=== PATIENT | female | born 1985 | race Caucasian/White ===

== ENCOUNTER 2022-05-09 15:07 | Emergency (ER) | payer BC, SELFPAY ==
--- NOTE | ~2022-05-09 | XR_ITS ---
EXAMINATION: XR CHEST CLINICAL INFORMATION: Chest pain. COMPARISON: None available. TECHNIQUE: Frontal view of the chest was obtained. FINDINGS: No significant abnormality is noted involving the heart, lungs, mediastinum, bony thorax or soft tissues. XR/XR chest 1V IMPRESSION: No acute cardiopulmonary process.
--- NOTE | 2022-05-09 15:09 | ECG_ITS ---
Test Reason : CP Blood Pressure : / mmHG Vent. Rate : 077 BPM Atrial Rate : 077 BPM P-R Int : 156 ms QRS Dur : 084 ms QT Int : 378 ms P-R-T Axes : 058 029 015 degrees QTc Int : 427 ms Normal sinus rhythm with sinus arrhythmia Normal ECG No previous ECGs available Referred By: Simeon Perez Electronically Signed By:LINN GIORDANO MD
--- NOTE | 2022-05-09 15:10 | ED.CHESTPAIN ---
HPI - Chest Pain General Chief Complaint: Chest Pain <CANDY Nugent - Last Filed: 05/09/22 15:16> Stated Complaint: chest pain <CANDY Nugent - Last Filed: 05/09/22 15:16> Time Seen by Provider: 05/09/22 18:32 <CANDY Nugent - Last Filed: 05/09/22 15:16> Source: patient <Jose Juan Pierce MD - Last Filed: 05/09/22 19:19> Mode of arrival: ambulatory <Jose Juan Pierce MD - Last Filed: 05/09/22 19:19> Limitations: no limitations <Jose Juan Pierce MD - Last Filed: 05/09/22 19:19> History of Present Illness HPI narrative: Patient nonsmoker with no coronary risk factor 36 years old with increased anxiety comes here for left-sided chest pain and upper back pain for last 1 month pain increases on palpation no shortness of breath no palpitation or diaphoresis pain is sharp in character <Jose Juan Pierce MD - Last Filed: 05/09/22 19:19> Related Data Home Medications: Previous Rx's Medication Instructions Recorded cyclobenzaprine 10 mg tablet 10 mg PO Q8H #20 tabs 05/09/22 ibuprofen 600 mg tablet 600 mg PO Q6H PRN fever or pain 05/09/22 #30 tabs <CANDY Nugent - Last Filed: 05/09/22 15:16> Allergies/Adverse Reactions: Allergies Allergy/AdvReac Type Severity Reaction Status Date / Time Unable to Assess Allergy Unverified 05/09/22 15:09 <CANDY Nugent - Last Filed: 05/09/22 15:16> Review of Systems Review of Systems: Constitutional : No Weight loss, No Fever, No Chills ENT/Mouth : No sore throat, No Rhinorrhea Eyes: No Eye Pain, No Swelling Cardiovascular : ++ Chest Pain, no palpitations Respiratory : No Cough, No Sputum, no shortness of breath Gastrointestinal : no Nausea, No Vomiting, No Diarrhea, No abdominal Pain, no black stools Genitourinary : No Dysuria, No Urinary Frequency Musculoskeletal : No joint pain, No Myalgias, No Joint Swelling Skin : No Skin Lesions, No rash Neuro : No Weakness, No Numbness, No Dizziness, No Headache Psych : No Anxiety/Panic, No Depression Heme/Lymph: No Bruising, No Lymphadenopathy Endocrine : No Polyuria, No Polydipsia All other systems reviewed and are negative <Jose Juan Pierce MD - Last Filed: 05/09/22 19:19> Yes all other systems are reviewed and are negative <Jose Juan Pierce MD - Last Filed: 05/09/22 19:19> [facility] Social History Social History: Social History Alcohol intake: current Alcohol intake frequency: a few times a month Alcohol type: wine Smoked in Last 30 Days: No Use of substances other than those prescribed or required for medical reasons: Yes Substance Use Type: Marijuana Substance Use Frequency: Chronic Longstanding Last Used Substance: Hours (ago) Any prior treatment program specific to substance use: No Advance Directives: No Advance Directives Information Provided: No Patient : No <CANDY Nugent - Last Filed: 05/09/22 15:16> Physical Exam Vital Signs: Vital Signs: Last Vital Signs Temp 98.0 F 05/09/22 18:34 Pulse 63 05/09/22 18:34 Resp 18 05/09/22 18:34 BP 125/69 05/09/22 18:34 Pulse Ox 99 05/09/22 18:34 O2 Del Method 05/09/22 18:34 BMI result Body Mass Index 41.5 <CANDY Nugent - Last Filed: 05/09/22 15:16> Vital Signs: Last Vital Signs Temp 98.0 F 05/09/22 18:34 Pulse 63 05/09/22 18:34 Resp 18 05/09/22 18:34 BP 125/69 05/09/22 18:34 Pulse Ox 99 05/09/22 18:34 O2 Del Method 05/09/22 18:34 BMI result Body Mass Index 41.5 <Jose Juan Pierce MD - Last Filed: 05/09/22 19:19> Appearance: Alert. Oriented X3. No acute distress. Eyes: PERRLA, No Nystagmus ENT: Pharynx normal. Oral Mucosa moist Neck: Normal inspection. Neck supple. CVS: Normal heart rate and rhythm. Pulses normal. Respiratory: No respiratory distress. Equal air entry bilateral, no wheezing/rales/rhonchi Abdomen: Soft and nontender. Bowel sounds are present, Skin: Skin warm and dry. Normal skin color. Normal skin turgor. upper back : Tenderness bilateral trepezoid area with trigger points tenderness Extremities: No lower extremity edema. No calf tenderness Neuro: Oriented X 3. No motor deficit. <Jose Juan Pierce MD - Last Filed: 05/09/22 19:19> Course Course Course Narrative: This is an RME: Additional HPI, ROS, PE not included below will be deferred to primary provider. 36 year old female presents w/ L sided stabbing chest pain w/ radition down L arm that started a month has been intermittent ever since. Was seen by PCP for this and was refered for stress test on may 31, 2022. Feels anxious. Denies sob, fevers, chills, nausea, vomiting. No cardiac hx. No family cardiac hx. No long travel, smoking, control, hx of malignancy, hx pe/dvt. PE benign however appears anxious Plan- labs, ekg, cxr <CANDY Nugent - Last Filed: 05/09/22 15:16> Medications Administered Discontinued Medications Generic Name Dose Route Start Last Admin Trade Name Freq PRN Reason Stop Dose Admin Cyclobenzaprine HCl 10 mg 05/09/22 19:03 05/09/22 19:12 Cyclobenzaprine Hcl 10 Mg Tablet PO 05/09/22 19:04 10 mg ONCE ONE Administration Ibuprofen 600 mg 05/09/22 19:03 05/09/22 19:12 Ibuprofen 600 Mg Tablet PO 05/09/22 19:04 600 mg ONCE ONE Administration <CANDY Nugent - Last Filed: 05/09/22 15:16> Medications Administered Discontinued Medications Generic Name Dose Route Start Last Admin Trade Name Freq PRN Reason Stop Dose Admin Cyclobenzaprine HCl 10 mg 05/09/22 19:03 05/09/22 19:12 Cyclobenzaprine Hcl 10 Mg Tablet PO 05/09/22 19:04 10 mg ONCE ONE Administration Ibuprofen 600 mg 05/09/22 19:03 05/09/22 19:12 Ibuprofen 600 Mg Tablet PO 05/09/22 19:04 600 mg ONCE ONE Administration <Jose Juan Pierce MD - Last Filed: 05/09/22 19:19> Medical Decision Making Medical Decision Making [facility] Narrative: Patient with increased anxiety atypical chest pain normal EKG normal troponin heart score of 0 likely fibromyalgia/costochondritis discharge patient home on ibuprofen and Flexeril <Jose Juan Pierce MD - Last Filed: 05/09/22 19:19> Lab Data [facility] Lab Attestation statement: I reviewed the patient's lab results. <Jose Juan Pierce MD - Last Filed: 05/09/22 19:19> Result Diagrams: 05/09/22 16:13 05/09/22 16:13 <CANDY Nugent - Last Filed: 05/09/22 15:16> Labs: Lab Results 05/09/22 05/09/22 05/09/22 Range/Units 16:13 16:13 16:13 WBC 11.6 H (4.8-10.8) X10*3/uL RBC 4.47 (4.20-5.50) X10*6/uL Hgb 13.1 (12.0-16.0) g/dl Hct 39.3 (37.0-47.0) % MCV 87.9 (80.0-98.0) fL MCH 29.3 (27.0-33.0) pg MCHC 33.3 (31.0-35.0) g/dl RDW 12.3 (11.0-16.0) % Plt Count 275 (160-400) X10*3/uL MPV 11.5 (9.4-12.3) fL Immature Gran % (Auto) 0.3 (0.0-0.4) % Neut % (Auto) 74.1 H (45-73) % Lymph % (Auto) 19.6 L (20-40) % Brooke % (Auto) 4.7 (2-11) % Eos % (Auto) 0.9 (0-4) % Baso % (Auto) 0.4 (0-2) % Lymph # (Auto) 2.3 (1.2-4.9) X10*3/uL Brooke # (Auto) 0.5 (0.1-1.2) X10*3/uL Eos # (Auto) 0.1 (0.0-0.4) X10*3/uL Baso # (Auto) 0.1 (0.0-0.2) X10*3/uL Abs Immat Gran (auto) 0.03 (0.00-0.03) X10*3/uL Absolute Neuts (auto) 8.6 H (2.0-8.3) x10*3/uL Absolute Nucleated RBC 0.000 (0.0-0.012) X10*3/uL Nucleated RBC % (auto) 0.0 (0.0-0.2) /100WBC Sodium 139 (135-145) mmol/L Potassium 4.3 (3.3-5.1) mmol/L Chloride 105 (96-108) mmol/L Carbon Dioxide 27 (22-29) mmol/L Anion Gap 11 L (12-20) BUN 21 H (9-16) mg/dL Creatinine 0.84 (0.5-1.4) mg/dL Estim Creat Clear Calc 118.5 Estimated GFR > 60 Random Glucose 90 (60-115) mg/dL Calcium 9.3 (8.4-10.2) mg/dL Magnesium 2.1 (1.6-2.6) mg/dL Total Bilirubin 0.5 (0.0-1.0) mg/dL AST 16 (5-31) U/L ALT 15 (0-31) U/L Alkaline Phosphatase 62 (39-117) U/L Troponin I High Sens < 3.5 (<3.5-17.0) ng/L B-Natriuretic Peptide (<100) pg/mL Total Protein 6.8 (6.5-8.0) g/dL Albumin 4.3 (3.5-5.0) g/dL 05/09/22 Range/Units 16:13 WBC (4.8-10.8) X10*3/uL RBC (4.20-5.50) X10*6/uL Hgb (12.0-16.0) g/dl Hct (37.0-47.0) % MCV (80.0-98.0) fL MCH (27.0-33.0) pg MCHC (31.0-35.0) g/dl RDW (11.0-16.0) % Plt Count (160-400) X10*3/uL MPV (9.4-12.3) fL Immature Gran % (Auto) (0.0-0.4) % Neut % (Auto) (45-73) % Lymph % (Auto) (20-40) % Brooke % (Auto) (2-11) % Eos % (Auto) (0-4) % Baso % (Auto) (0-2) % Lymph # (Auto) (1.2-4.9) X10*3/uL Brooke # (Auto) (0.1-1.2) X10*3/uL Eos # (Auto) (0.0-0.4) X10*3/uL Baso # (Auto) (0.0-0.2) X10*3/uL Abs Immat Gran (auto) (0.00-0.03) X10*3/uL Absolute Neuts (auto) (2.0-8.3) x10*3/uL Absolute Nucleated RBC (0.0-0.012) X10*3/uL Nucleated RBC % (auto) (0.0-0.2) /100WBC Sodium (135-145) mmol/L Potassium (3.3-5.1) mmol/L Chloride (96-108) mmol/L Carbon Dioxide (22-29) mmol/L Anion Gap (12-20) BUN (9-16) mg/dL Creatinine (0.5-1.4) mg/dL Estim Creat Clear Calc Estimated GFR Random Glucose (60-115) mg/dL Calcium (8.4-10.2) mg/dL Magnesium (1.6-2.6) mg/dL Total Bilirubin (0.0-1.0) mg/dL AST (5-31) U/L ALT (0-31) U/L Alkaline Phosphatase (39-117) U/L Troponin I High Sens (<3.5-17.0) ng/L B-Natriuretic Peptide < 10 (<100) pg/mL Total Protein (6.5-8.0) g/dL Albumin (3.5-5.0) g/dL <CANDY Nugent - Last Filed: 05/09/22 15:16> Lab Results 05/09/22 05/09/22 05/09/22 Range/Units 16:13 16:13 16:13 WBC 11.6 H (4.8-10.8) X10*3/uL RBC 4.47 (4.20-5.50) X10*6/uL Hgb 13.1 (12.0-16.0) g/dl Hct 39.3 (37.0-47.0) % MCV 87.9 (80.0-98.0) fL MCH 29.3 (27.0-33.0) pg MCHC 33.3 (31.0-35.0) g/dl RDW 12.3 (11.0-16.0) % Plt Count 275 (160-400) X10*3/uL MPV 11.5 (9.4-12.3) fL Immature Gran % (Auto) 0.3 (0.0-0.4) % Neut % (Auto) 74.1 H (45-73) % Lymph % (Auto) 19.6 L (20-40) % Brooke % (Auto) 4.7 (2-11) % Eos % (Auto) 0.9 (0-4) % Baso % (Auto) 0.4 (0-2) % Lymph # (Auto) 2.3 (1.2-4.9) X10*3/uL Brooke # (Auto) 0.5 (0.1-1.2) X10*3/uL Eos # (Auto) 0.1 (0.0-0.4) X10*3/uL Baso # (Auto) 0.1 (0.0-0.2) X10*3/uL Abs Immat Gran (auto) 0.03 (0.00-0.03) X10*3/uL Absolute Neuts (auto) 8.6 H (2.0-8.3) x10*3/uL Absolute Nucleated RBC 0.000 (0.0-0.012) X10*3/uL Nucleated RBC % (auto) 0.0 (0.0-0.2) /100WBC Sodium 139 (135-145) mmol/L Potassium 4.3 (3.3-5.1) mmol/L Chloride 105 (96-108) mmol/L Carbon Dioxide 27 (22-29) mmol/L Anion Gap 11 L (12-20) BUN 21 H (9-16) mg/dL Creatinine 0.84 (0.5-1.4) mg/dL Estim Creat Clear Calc 118.5 Estimated GFR > 60 Random Glucose 90 (60-115) mg/dL Calcium 9.3 (8.4-10.2) mg/dL Magnesium 2.1 (1.6-2.6) mg/dL Total Bilirubin 0.5 (0.0-1.0) mg/dL AST 16 (5-31) U/L ALT 15 (0-31) U/L Alkaline Phosphatase 62 (39-117) U/L Troponin I High Sens < 3.5 (<3.5-17.0) ng/L B-Natriuretic Peptide (<100) pg/mL Total Protein 6.8 (6.5-8.0) g/dL Albumin 4.3 (3.5-5.0) g/dL 05/09/22 Range/Units 16:13 WBC (4.8-10.8) X10*3/uL RBC (4.20-5.50) X10*6/uL Hgb (12.0-16.0) g/dl Hct (37.0-47.0) % MCV (80.0-98.0) fL MCH (27.0-33.0) pg MCHC (31.0-35.0) g/dl RDW (11.0-16.0) % Plt Count (160-400) X10*3/uL MPV (9.4-12.3) fL Immature Gran % (Auto) (0.0-0.4) % Neut % (Auto) (45-73) % Lymph % (Auto) (20-40) % Brooke % (Auto) (2-11) % Eos % (Auto) (0-4) % Baso % (Auto) (0-2) % Lymph # (Auto) (1.2-4.9) X10*3/uL Brooke # (Auto) (0.1-1.2) X10*3/uL Eos # (Auto) (0.0-0.4) X10*3/uL Baso # (Auto) (0.0-0.2) X10*3/uL Abs Immat Gran (auto) (0.00-0.03) X10*3/uL Absolute Neuts (auto) (2.0-8.3) x10*3/uL Absolute Nucleated RBC (0.0-0.012) X10*3/uL Nucleated RBC % (auto) (0.0-0.2) /100WBC Sodium (135-145) mmol/L Potassium (3.3-5.1) mmol/L Chloride (96-108) mmol/L Carbon Dioxide (22-29) mmol/L Anion Gap (12-20) BUN (9-16) mg/dL Creatinine (0.5-1.4) mg/dL Estim Creat Clear Calc Estimated GFR Random Glucose (60-115) mg/dL Calcium (8.4-10.2) mg/dL Magnesium (1.6-2.6) mg/dL Total Bilirubin (0.0-1.0) mg/dL AST (5-31) U/L ALT (0-31) U/L Alkaline Phosphatase (39-117) U/L Troponin I High Sens (<3.5-17.0) ng/L B-Natriuretic Peptide < 10 (<100) pg/mL Total Protein (6.5-8.0) g/dL Albumin (3.5-5.0) g/dL <Jose Juan Pierce MD - Last Filed: 05/09/22 19:19> Independent Interpretation I performed an independent interpretation of an: EKG <Jose Juan Pierce MD - Last Filed: 05/09/22 19:19> Interpretation: Normal sinus rhythm heart rate 77 beats per minute normal interval normal axis no acute ST wave changes impression normal EKG <Jose Juan Pierce MD - Last Filed: 05/09/22 19:19> Discharge Plan Discharge Clinical Impression: Costalchondritis, Fibromyalgia <CANDY Nugent - Last Filed: 05/09/22 15:16> Patient Disposition: Home, Self-Care <CANDY Nugent - Last Filed: 05/09/22 15:16> Instructions: Costochondritis (ED), Fibromyalgia (ED) <CANDY Nugent - Last Filed: 05/09/22 15:16> Additional Instructions: Take pain medication muscle relaxant as prescribed Your chest pain and upper back pain is not from the heart likely have fibromyalgia Follow with PCP <CANDY Nugent - Last Filed: 05/09/22 15:16> Prescriptions: New cyclobenzaprine 10 mg tablet 10 mg PO Q8H Qty: 20 0RF ibuprofen 600 mg tablet 600 mg PO Q6H PRN (Reason: fever or pain) Qty: 30 0RF <CANDY Nugent - Last Filed: 05/09/22 15:16> Interventions: ED Discharge Assessment Last Done: 05/09/22 19:16 <CANDY Nugent - Last Filed: 05/09/22 15:16>
[2022-05-09 15:31] VITALS: BP 135/87; PULSE 86; RESP 20; TEMP 36.5; O2SAT 98; BMI 41.5
[2022-05-09 16:18] LABS: MANUAL DIFF FLAG NO
[2022-05-09 16:20] LABS: Basophils Absolute Auto 0.1 X10*3/uL (0.0-0.2); Basophils Percent Auto 0.4 % (0-2); Eosinophils Absolute Auto 0.1 X10*3/uL (0.0-0.4); Eosinophils Percent Auto 0.9 % (0-4); Hematocrit 39.3 % (37.0-47.0); Hemoglobin 13.1 g/dl (12.0-16.0); Imm Gran Abs Auto 0.03 X10*3/uL (0.00-0.03); Imm Gran Pct Auto 0.3 % (0.0-0.4); Lymphocytes Absolute Auto 2.3 X10*3/uL (1.2-4.9); Lymphocytes Percent Auto 19.6 % (20-40); Mean Corpuscular HGB Conc 33.3 g/dl (31.0-35.0); Mean Corpuscular Hemoglobin 29.3 pg (27.0-33.0); Mean Corpuscular Volume 87.9 fL (80.0-98.0); Mean Platelet Volume 11.5 fL (9.4-12.3); Monocytes Absolute Auto 0.5 X10*3/uL (0.1-1.2); Monocytes Percent Auto 4.7 % (2-11); Neutrophils Absolute Auto 8.6 x10*3/uL (2.0-8.3); Neutrophils Percent Auto 74.1 % (45-73); Platelet Count 275 X10*3/uL (160-400); Red Blood Count 4.47 X10*6/uL (4.20-5.50); Red Cell Distribution Width 12.3 % (11.0-16.0); White Blood Count 11.6 X10*3/uL (4.8-10.8)
[2022-05-09 16:40] LABS: Alanine Aminotransferase 15 U/L (0-31); Albumin Level 4.3 g/dL (3.5-5.0); Alkaline Phosphatase 62 U/L (39-117); Anion Gap 11 (12-20); Aspartate Amino Transferase 16 U/L (5-31); Bilirubin Total 0.5 mg/dL (0.0-1.0); Blood Urea Nitrogen 21 mg/dL (9-16); Calcium 9.3 mg/dL (8.4-10.2); Carbon Dioxide 27 mmol/L (22-29); Chloride 105 mmol/L (96-108); Creatinine Clr Calc Pharmacy 118.5; Estimated Glomerular Filt Rate > 60; Glucose Random 90 mg/dL (60-115); Magnesium 2.1 mg/dL (1.6-2.6); Potassium 4.3 mmol/L (3.3-5.1); Sodium 139 mmol/L (135-145); Total Protein 6.8 g/dL (6.5-8.0)
[2022-05-09 16:44] LABS: B Type Natriuretic Peptide < 10 pg/mL (<100)
[2022-05-09 16:51] LABS: Troponin-I High Sensitivity < 3.5 ng/L (<3.5-17.0)
[2022-05-09 18:34] VITALS: BP 125/69; PULSE 63; RESP 18; TEMP 36.7; O2SAT 99
[2022-05-09] MEDS: Cyclobenzaprine HCl 10 MG TABLET PO (19:12)
[2022-05-09] MEDS: Ibuprofen 600 MG TABLET PO (19:12)
--- NOTE | 2022-05-09 19:15 | PC.NURSE ---
Assumed care of pt. at 1900. Pt. resting in bed at this time reporting 5/10 pain. Pt. pending d/c. medicated per APR and d/c'd to home.
== END 2022-05-09 19:17 | disposition home or self-care (01) ==
PROVIDERS: Physician Assistant; Emergency Provider Internal Medicine
DX: R07.9 Chest pain, unspecified (principal); M94.0 Chondrocostal junction syndrome [Tietze]; M79.7 Fibromyalgia
CPT/HCPCS: 36415; 71045; 80053; 83735; 83880; 84484; 85025; 93005; 99283; 99284; 99285

== ENCOUNTER 2022-12-23 19:18 | Emergency (ER) | payer BC, SELFPAY ==
--- NOTE | ~2022-12-23 | XR_ITS ---
EXAMINATION: PORTABLE CHEST 1 VIEW CLINICAL INFORMATION: Cough, difficulty breathing. COMPARISON: 05/09/2022. TECHNIQUE: Portable frontal view of the chest was obtained. FINDINGS: The lungs are well expanded. No focal infiltrate, effusion, edema, or pneumothorax. Cardiac and mediastinal silhouettes are within normal limits for technique. No acute bony abnormality seen. XR/XR chest 1V IMPRESSION: No evidence of acute disease.
[2022-12-23 19:29] VITALS: BP 129/79; PULSE 91; RESP 21; TEMP 36.7; O2SAT 98; BMI 41.6
[2022-12-23 20:19] LABS: Hemoglobin 12.7 g/dl (12.0-16.0); Mean Corpuscular HGB Conc 32.6 g/dl (31.0-35.0); Mean Corpuscular Hemoglobin 29.7 pg (27.0-33.0); Mean Corpuscular Volume 91.1 fL (80.0-98.0); Mean Platelet Volume 11.5 fL (9.4-12.3); Platelet Count 243 X10*3/uL (160-400); Red Blood Count 4.28 X10*6/uL (4.20-5.50); Red Cell Distribution Width 12.4 % (11.0-16.0); White Blood Count 10.4 X10*3/uL (4.8-10.8)
[2022-12-23 20:41] LABS: IDNOW Serial# 08D9AD1C; Strep A Nucleic Acid Negative (Negative)
[2022-12-23 20:51] LABS: Alanine Aminotransferase 17 U/L (0-31); Albumin Level 3.9 g/dL (3.5-5.0); Alkaline Phosphatase 56 U/L (39-117); Anion Gap 11 (12-20); Aspartate Amino Transferase 16 U/L (5-31); Bilirubin Total 0.2 mg/dL (0.0-1.0); Blood Urea Nitrogen 16 mg/dL (9-16); Calcium 8.7 mg/dL (8.4-10.2); Carbon Dioxide 23 mmol/L (22-29); Chloride 111 mmol/L (96-108); Creatinine Clr Calc Pharmacy 110.8; Estimated Glomerular Filt Rate > 60; Glucose Random 93 mg/dL (60-115); Potassium 3.7 mmol/L (3.3-5.1); Sodium 141 mmol/L (135-145); Total Protein 6.8 g/dL (6.5-8.0)
[2022-12-23 20:55] LABS: Influenza A PCR NEGATIVE (Negative); Influenza B PCR NEGATIVE (Negative); Resp Syncy Virus RNA Qual PCR NEGATIVE (Negative); SARS COV2 PCR INHOUSE NEGATIVE (Negative)
--- NOTE | 2022-12-23 21:40 | ED_ITS ---
HPI - General Adult General Chief complaint: Upper Respiratory Symptoms Stated complaint: difficulty breathing, congested, cough Time Seen by Provider: 12/23/22 21:39 Source: patient Mode of arrival: ambulatory Limitations: no limitations History of Present Illness HPI narrative: Patient is a 37 year old assigned female at with a history of asthma presenting to the emergency department today with a sore throat and cough. Patient states that earlier today she developed a sore throat and a cough. Patient denies any dizziness, lightheadedness, abdominal pain, nausea, vomiting, fever, chills, blurry vision, double vision, loss of vision, chest pain, difficulty breathing, shortness of breath, back pain, night sweats, pain with urination, increased urinary frequency, increased urinary urgency, blood in her urine or stool, syncope or a near syncopal episode, recent trauma or falls, bowel incontinence, bladder incontinence, bowel retention, bladder retention, or any other complaints at this time. Onset (ago): hour(s) Severity: mild Severity scale (1-10): 2 Relieving factors: none Exacerbating factors: none Associated symptoms: cough Treatments prior to arrival: none Related Data Previous Rx's Medication Instructions Recorded cyclobenzaprine 10 mg tablet 10 mg PO Q8H #20 tabs 05/09/22 ibuprofen 600 mg tablet 600 mg PO Q6H PRN fever or pain 05/09/22 #30 tabs doxycycline hyclate 100 mg tablet 100 mg PO BID 7 days #14 tabs 12/23/22 prednisone 20 mg tablet 20 mg PO DAILY 7 days #7 tabs 12/23/22 Allergies Allergy/AdvReac Type Severity Reaction Status Date / Time No Known Allergies Allergy Verified 12/23/22 19:29 Review of Systems 2 Constitutional: Constitutional: Reports no additional constitutional complaints, Denies chills, Denies fever(s) and Denies night sweats Eyes: Eyes: Reports no additional eye complaints, Denies blurry vision, Denies change in vision, Denies diplopia, Denies eye discharge, Denies loss of vision and Denies eye pain ENT: Denies dizziness and Reports sore throat Cardiovascular: Cardiovascular: Reports no additional cardiovascular complaints, Denies chest pain, Denies lightheadedness, Denies Loss of Consciousness and Denies dyspnea Respiratory: Respiratory: Reports no additional respiratory complaints, Reports cough and Denies dyspnea Gastrointestinal: Gastrointestinal: Reports no additional gastrointestinal complaints, Denies abdominal pain, Denies melena, Denies hematochezia, Denies change in bowel habits and Denies change in stool character Genitourinary: Genitourinary: Denies hematuria, Denies urinary frequency, Denies dysuria, Denies urinary incontinence, Denies urinary hesitancy and Denies urinary urgency Musculoskeletal: Musculoskeletal: Reports no additional musculoskeletal complaints, Denies numbness and Denies tingling Neurologic: Denies dizziness, Denies loss of vision, Denies numbness and Denies tingling Psychiatric: Psychiatric: Reports no additional psychiatric complaints Endocrine: Endocrine: Reports no additional endocrine complaints Hematologic/Lymphatic: Hematologic/Lymphatic: Reports no additional hematologic/lymphatic complaints Allergic/Immunologic: Allergic/Immunologic: Reports no additional allergic/immunologic complaints PMFSH Past Medical History Attestation statement: The following information was validated with the patient. Source: old records reviewed and nursing notes reviewed Social History Social History Alcohol intake: current Alcohol intake frequency: a few times a month Alcohol type: wine Smoked in Last 30 Days: No Use of substances other than those prescribed or required for medical reasons: No Substance Use Type: Marijuana Advance Directives: No Patient : No Physical Exam ED Vital Signs: Vital Signs - 24 hr 12/23/22 19:29 12/23/22 21:51 Temperature 98.0 F Pulse Rate 91 Respiratory Rate 21 H Blood Pressure 129/79 Pulse Oximetry 98 98 Oxygen Delivery Method Room Air Room Air BMI result Body Mass Index 41.6 Const General: cooperative, no acute distress, alert and awake Nutritional Appearance: well nourished Orientation/consciousness: patient oriented x3 Limitations: no limitations [facility]: Yes normal to inspection and Yes atraumatic Ears: hearing grossly normal bilaterally and external ears normal General nose exam: Normal external nose present, no nasal discharge noted and no epistaxis Face and sinus: Yes normal facial exam, No abrasion and No laceration Mouth: Normal oral and palatal mucosa present, no drooling and no muffled voice Eyes General: appearance normal, both eyes and all related structures Periorbital: periorbital findings normal Eyelids: Yes eyelids normal Conjunctivae: conjunctivae normal Pupils: Equal, round and reactive pupils present EOM: EOMs intact bilaterally Neck Neck: Yes normal visual inspection, Yes full ROM and Yes no lymphadenopathy Chest Chest palpation & inspection: normal inspection of the chest Resp Effort & Inspection: normal respiratory effort, able to speak in complete sentences and Actively coughing Quality: dry Auscultation: clear to auscultation bilaterally GI Inspection: Yes normal to inspection Neuro General: patient oriented x3 and moves all extremities Cranial nerves: Yes Equal, round and reactive pupils present Cognition (Neuro): normal cognition Motor exam (neuro): 5/5 motor strength present throughout Sensory Exam: Normal double simultaneous stimulation for sensation Coordination: [id number] test normal Extrem General: Yes normal to inspection, Yes full ROM and Yes capillary refill normal Psych Appearance: grossly normal Mental Status: mental status grossly normal Affect: normal affect Attitude: cooperative Thought process: Normal thought process present Thought content: Normal thought content present Insight: Good insight present (Psych) Medications Administered Discontinued Medications Generic Name Dose Route Start Last Admin Trade Name Freq PRN Reason Stop Dose Admin Dexamethasone Sodium Phosphate 10 mg 12/23/22 21:47 12/23/22 21:57 Dexamethasone Sod Phosphate 10 Mg/Ml Vial PO 12/23/22 21:48 10 mg ONCE ONE Administration Medical Decision Making Medical Decision Making [facility] Narrative: Patient is a 37 year old assigned female at with a history of asthma presenting to the emergency department today with a cough. Patient's physical exam showed a cough but was otherwise unremarkable. Patient's blood work was unremarkable. Patient's chest x-ray showed no acute process. I explained my physical exam findings as well as all test results to the patient. I answered all questions asked by the patient. I stressed the importance of the patient taking her medication as prescribed. I stressed the importance of the patient following up with her primary care provider. I stressed the importance of the patient returning to the emergency department immediately if her symptoms were to worsen or if she were to develop any dizziness, shortness of breath, difficulty breathing, chest pain, blurry vision, loss of vision, nausea, vomiting, abdominal pain, fever, chills, back pain, or any other complaints. Patient verbalized agreement and understanding with this treatment plan and discharge. Differential Diagnosis Differential Diagnoses: The differential diagnosis associated with the presentation includes URI COVID-19 Admission/Observation Consideration of admission/observation: Escalation of care including admission/observation considered Patient would have been admitted to the hospital had her work up had any findings where hospital admission was appropriate and her clinical presentation warranted hospital admission. Lab Data MDM Lab Attestation statement: I reviewed the patient's lab results. My interpretation of these studies and their corresponding values is that they are grossly normal. 12/23/22 20:10 12/23/22 20:10 Labs: Lab Results 12/23/22 Range/Units 20:10 WBC 10.4 (4.8-10.8) X10*3/uL RBC 4.28 (4.20-5.50) X10*6/uL Hgb 12.7 (12.0-16.0) g/dl Hct 39.0 (37.0-47.0) % MCV 91.1 (80.0-98.0) fL MCH 29.7 (27.0-33.0) pg MCHC 32.6 (31.0-35.0) g/dl RDW 12.4 (11.0-16.0) % Plt Count 243 (160-400) X10*3/uL MPV 11.5 (9.4-12.3) fL Absolute Nucleated RBC 0.000 (0.0-0.012) X10*3/uL Nucleated RBC % (auto) 0.0 (0.0-0.2) /100WBC Sodium 141 (135-145) mmol/L Potassium 3.7 (3.3-5.1) mmol/L Chloride 111 H (96-108) mmol/L Carbon Dioxide 23 (22-29) mmol/L Anion Gap 11 L (12-20) BUN 16 (9-16) mg/dL Creatinine 0.89 (0.5-1.4) mg/dL Estim Creat Clear Calc 110.8 Estimated GFR > 60 Random Glucose 93 (60-115) mg/dL Calcium 8.7 D (8.4-10.2) mg/dL Total Bilirubin 0.2 (0.0-1.0) mg/dL AST 16 (5-31) U/L ALT 17 (0-31) U/L Alkaline Phosphatase 56 (39-117) U/L Total Protein 6.8 (6.5-8.0) g/dL Albumin 3.9 (3.5-5.0) g/dL Influenza Type A (PCR) NEGATIVE (Negative) Influenza Type B (PCR) NEGATIVE (Negative) RSV RNA Qual (PCR) NEGATIVE (Negative) SARS-CoV-2 RNA (RT-PCR) NEGATIVE (Negative) S. pyogenes GrpA HERMELINDA Negative (Negative) Independent Interpretation I performed an independent interpretation of an: Plain X-Ray Interpretation: My interpretation is in agreement with the radiologist's impression of this imaging study. - EXAMINATION: PORTABLE CHEST 1 VIEW CLINICAL INFORMATION: Cough, difficulty breathing. COMPARISON: 05/09/2022. TECHNIQUE: Portable frontal view of the chest was obtained. FINDINGS: The lungs are well expanded. No focal infiltrate, effusion, edema, or pneumothorax. Cardiac and mediastinal silhouettes are within normal limits for technique. No acute bony abnormality seen. XR/XR chest 1V IMPRESSION: No evidence of acute disease. Dictated By: Max Cote MD Signed By: Electronically signed by Max Cote MD 12/23/221999 Radiology Impression Discussion of test interpretation with radiology: I have reviewed the radiologist's reading. Prescription Management I considered prescription management with: Antibiotic (patient prescribed an antibiotic for acute URI) Discharge Plan Discharge Clinical Impression: Upper respiratory infection Patient Disposition: Home, Self-Care Instructions: Upper Respiratory Infection (DC) Additional Instructions: Follow up with your primary care provider. Return to the emergency department immediately if your symptoms worsen or if you develop any dizziness, shortness of breath, difficulty breathing, chest pain, blurry vision, loss of vision, nausea, vomiting, abdominal pain, fever, chills, back pain, or any other complaints. Prescriptions: New prednisone 20 mg tablet 20 mg PO DAILY 7 Days Qty: 7 0RF doxycycline hyclate 100 mg tablet 100 mg PO BID 7 Days Qty: 14 0RF No Action cyclobenzaprine 10 mg tablet 10 mg PO Q8H Qty: 20 0RF ibuprofen 600 mg tablet 600 mg PO Q6H PRN (Reason: fever or pain) Qty: 30 0RF Referrals: [facility] [place] [facility] [place]] (Call to establish and follow up with a primary care provider. If you already have a primary care provider, please follow up with them.) [facility] [place] [facility] [place] [Provider Group] (Call to establish and follow up with a primary care provider. If you already have a primary care provider, please follow up with them.) [facility] [place] [facility] [Provider Group] (Call to establish and follow up with a primary care provider. If you already have a primary care provider, please follow up with them.) Stand Alone Forms: Work/School Release Interventions: ED Discharge Assessment Last Done: 12/23/22 22:04 Discharge Date/Time: 12/23/22 22:04 Print Language: [place]
[2022-12-23 21:51] VITALS: O2SAT 98
--- NOTE | 2022-12-23 21:51 | PC.NURSE ---
Pt reporing a productive cough that started hours ago, with a sore throat with 3/10 pain, and SOB. Pt reports having asthma and used her inhaler with no relief. Pt reports her son has a cough at home. Lung sounds clear bilaterally. Pt aware of plan.
[2022-12-23] MEDS: dexAMETHasone sod phosphate 10 MG/ML VIAL PO (21:57)
== END 2022-12-23 22:04 | disposition home or self-care (01) ==
PROVIDERS: Emergency Provider Emergency Medicine
DX: J06.9 Acute upper respiratory infection, unspecified (principal); R06.02 Shortness of breath; R05.9 Cough, unspecified; Z20.822 Contact with and (suspected) exposure to COVID-19; Z20.828 Contact with and (suspected) exposure to other viral communicable diseases; Z79.899 Other long term (current) drug therapy
CPT/HCPCS: 0241U; 71045; 80053; 85027; 87651; 99283; 99284; J1100

== ENCOUNTER 2023-08-30 10:53 | Outpatient (AMB) | payer BC, SELFPAY ==
--- NOTE | 2023-08-30 10:58 | A.OFFVIS_ITS ---
Vital Signs 08/30/23 11:07 Height 5 ft 5 in Weight 279 lb 1.683 oz BMI 46.4 BP 120/72 Blood Pressure Location Rt brachial Position Sitting Pulse 61 Pulse Source Pulse Oximeter Pulse Oximetry (%) 99 Oxygen Delivery Method Room Air Intake Visit Reasons: Lyme disease/CM Intake Note: Patient presents for Lyme disease. Lots of joint pain and body aches. Allergies No Known Allergies Allergy (Verified 08/30/23 11:02) Medication List - Last Reconciled 08/30/23 by Aden Lundy MD atovaquone 750 mg PO BID azithromycin 250 mg PO DIRECTED cyclobenzaprine 10 mg PO Q8H ibuprofen 600 mg PO Q6H PRN HPI Comments Details: This is a 38-year-old female who presents for evaluation of diffuse pain and body aches. She states that she has had diffuse body aches for years but it has become worse since April of 2022. Was having significant left shoulder pain and pain in her upper left back area, neck area. She was evaluated by physiatry and received a couple of steroid injections without much improvement as well as trigger point injection without much improvement. 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 She is currently on treatment. She started atovaquone about 5 weeks ago and azithromycin was started recently. States that the treatment last 6-8 months. She has not noticed any significant improvement yet. Patient sleeps about 8 hours nightly but does not wake up refreshed. She follows up with a therapist about once a month. She is unaware of any family history of an autoimmune rheumatic disease. Denies any history suggestive of uveitis. Denies any history suggestive of DVT/PE or recurrent miscarriages. PFSH Surgical History H/O knee surgery Family History Father Colon cancer Hypertension Mother Endometriosis Social History (Updated 08/30/23 @ 12:38 by Aden Lundy MD) Household Members: Children Housing: House Alcohol intake: current Alcohol intake frequency: a few times a month Alcohol type: wine Patient Tobacco Use Status: Never used Tobacco Substance Use Type: Marijuana Current occupational status: employed Current occupation: Sales Female Reproductive History Menstrual Total pregnancies: 3 Ab spontaneous: 1 Review of Systems Const Reports fatigue, Reports weakness and Reports weight gain ENT Reports dizziness and Reports neck pain GI Reports nausea Musc Reports myalgias, Reports arthralgias, Reports neck pain and Reports stiffness Neuro Reports dizziness and Reports weakness Endo Reports fatigue Physical Exam Vital Signs: Last Vital Signs Pulse 61 08/30/23 11:07 BP 120/72 08/30/23 11:07 Pulse Ox 99 08/30/23 11:07 Oxygen Delivery Method Room Air 08/30/23 11:07 BMI result Body Mass Index 46.4 Const General: cooperative, healthy appearing and comfortable Nutritional Appearance: obese morbidly obese Orientation/consciousness: patient oriented x3 Limitations: no limitations HEENT Head: Yes normocephalic and Yes atraumatic Mouth: moist mucous membranes Resp Effort & Inspection: normal respiratory effort and able to speak in complete sentences Auscultation: clear to auscultation bilaterally Cardio Rate: regular rate Rhythm: regular rhythm Skin General skin exam: no rashes or lesions noted Neuro General: patient oriented x3 Extrem Other: No active synovitis Normal nailfold capillaroscopy Assessment & Plan Assessment & Plan (1) Diffuse pain: Code(s): R52 - Pain, unspecified Category: Medical Plan: This is a 38-year-old female who presents for evaluation of diffuse pain and fatigue. Symptoms ongoing for more than a year. Upon evaluation I do not see any signs suggestive of an autoimmune rheumatic disease. She was recently evaluated by [facility] and diagnosed with babesiosis, started treatment with atovaquone and azithromycin. Per patient treatment would last 6- 8 months. Advised patient to continue to follow-up with [facility]. Complete the treatment. If No improvement in symptoms after antibiotic course is completed, then likely her diagnosis is fibromyalgia. We briefly discussed fibromyalgia. Advised patient to consider a sleep study referral from her PCP. We discussed low-impact exercises such as aquatherapy. We discussed symptoms and signs suggestive of an autoimmune rheumatic disease. Advised patient to follow-up as needed Plan I spent 30 minutes reviewing patient's chart, evaluating patient, counseling patient and documenting in the chart Medications: Discontinued prednisone Discontinued Reason: Patient no longer taking 20 mg PO DAILY 7 days 7 tabs 0RF doxycycline hyclate Discontinued Reason: Patient no longer taking 100 mg PO BID 7 days 14 tabs 0RF Coding Level of Care Code New Pt Level 3 (54025) Diagnoses Diffuse pain R52
[2023-08-30 11:07] VITALS: BP 120/72; PULSE 61; O2SAT 99; BMI 46.4
== END 2023-08-30 11:39 | disposition home or self-care (01) ==
PROVIDERS: Visit Provider Student in an Organized Health Care Education/Training Program
DX: R52 Pain, unspecified (principal)
CPT/HCPCS: 99203

== ENCOUNTER → 2023-08-30 10:53 | Outpatient (BNVA) | payer BC, SELFPAY | PROVIDERS: Visit Provider Student in an Organized Health Care Education/Training Program ==

== ENCOUNTER 2023-12-31 08:20 | Emergency (ER) | payer BC, SELFPAY ==
--- NOTE | ~2023-12-31 | XR_ITS ---
EXAMINATION: Left foot 3 views and left ankle 4 views. CLINICAL INDICATION: Swelling and pain. COMPARISON: None. FINDINGS: LEFT FOOT: There is normal alignment of metatarsophalangeal, interphalangeal and tarsometatarsal joints. No visible acute fracture or dislocation seen. The soft tissues are normal. LEFT ANKLE: There is a small calcaneal heel spur. The ankle mortise and subtalar joints are normal. No visible acute fracture, dislocation or subluxation seen. The soft tissues are normal. XR/XR foot LT min 3V IMPRESSION: Small calcaneal heel enthesophyte. No visible acute fracture or dislocation seen. Electronically signed by: Eyal Saez MD 12/31/2023 10:54 AM ROSLYN SMITH
--- NOTE | ~2023-12-31 | XR_ITS ---
EXAMINATION: Left foot 3 views and left ankle 4 views. CLINICAL INDICATION: Swelling and pain. COMPARISON: None. FINDINGS: LEFT FOOT: There is normal alignment of metatarsophalangeal, interphalangeal and tarsometatarsal joints. No visible acute fracture or dislocation seen. The soft tissues are normal. LEFT ANKLE: There is a small calcaneal heel spur. The ankle mortise and subtalar joints are normal. No visible acute fracture, dislocation or subluxation seen. The soft tissues are normal. XR/XR ankle LT min 3V IMPRESSION: Small calcaneal heel enthesophyte. No visible acute fracture or dislocation seen. Electronically signed by: Eyal Saez MD 12/31/2023 10:54 AM ROSLY[facility] SMITH
[2023-12-31 08:22] VITALS: BP 118/66; PULSE 80; RESP 16; TEMP 36.3; O2SAT 98; BMI 45.8
[2023-12-31 08:59] VITALS: BP 120/69; PULSE 83; RESP 18; TEMP 36.8; O2SAT 98
[2023-12-31 09:54] LABS: MANUAL DIFF FLAG NO
[2023-12-31 09:57] LABS: Basophils Percent Auto 0.3 % (0-2); Eosinophils Percent Auto 0.1 % (0-4); Hematocrit 37.4 % (37.0-47.0); Hemoglobin 12.6 g/dl (12.0-16.0); Imm Gran Abs Auto 0.06 X10*3/uL (0.00-0.03); Imm Gran Pct Auto 0.5 % (0.0-0.4); Lymphocytes Absolute Auto 1.3 X10*3/uL (1.2-4.9); Mean Corpuscular HGB Conc 33.7 g/dl (31.0-35.0); Mean Corpuscular Hemoglobin 29.7 pg (27.0-33.0); Mean Corpuscular Volume 88.2 fL (80.0-98.0); Mean Platelet Volume 11.7 fL (9.4-12.3); Monocytes Absolute Auto 0.5 X10*3/uL (0.1-1.2); Monocytes Percent Auto 3.7 % (2-11); Neutrophils Absolute Auto 10.9 x10*3/uL (2.0-8.3); Neutrophils Percent Auto 85.4 % (45-73); Platelet Count 186 X10*3/uL (160-400); Red Blood Count 4.24 X10*6/uL (4.20-5.50); Red Cell Distribution Width 12.6 % (11.0-16.0); White Blood Count 12.7 X10*3/uL (4.8-10.8)
[2023-12-31 10:12] LABS: Alanine Aminotransferase 15 U/L (0-31); Albumin Level 3.9 g/dL (3.5-5.0); Alkaline Phosphatase 54 U/L (39-117); Anion Gap 14 (12-20); Aspartate Amino Transferase 17 U/L (5-31); Bilirubin Direct 0.2 mg/dL (0.0-0.5); Bilirubin Total 0.5 mg/dL (0.0-1.0); Blood Urea Nitrogen 16 mg/dL (9-16); C Reactive Protein 10.38 mg/dL (< or = 0.50); Calcium 8.9 mg/dL (8.4-10.2); Carbon Dioxide 23 mmol/L (22-29); Chloride 107 mmol/L (96-108); Creatinine Clr Calc Pharmacy 137.6; Estimated Glomerular Filt Rate > 60; Glucose Random 87 mg/dL (60-115); Magnesium 1.9 mg/dL (1.6-2.6); Potassium 3.7 mmol/L (3.3-5.1); Sodium 140 mmol/L (135-145)
[2023-12-31] MEDS: Acetaminophen 325 MG TABLET 650 MG PO (10:20)
--- NOTE | 2023-12-31 10:26 | ED.GENADULT ---
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 Denies reported injuries, falls. Does admit to doing work out on . Denies history of gout, numbness, tingling, weakness, fever/chills, recent travel, tick or insect bites, new medications. States is currently taking homeopathic remedies for Lyme/Babesosis. Related Data Home Medications ?Medication ?Instructions ?Recorded ?Confirmed atovaquone 750 mg/5 mL oral 750 mg PO BID 08/30/23 suspension azithromycin 250 mg tablet 250 mg PO DIRECTED 08/30/23 Previous Rx's ?Medication ?Instructions ?Recorded cyclobenzaprine 10 mg tablet 10 mg PO Q8H #20 tabs 05/09/22 ibuprofen 600 mg tablet 600 mg PO Q6H PRN fever or pain 05/09/22 #30 tabs prednisone 20 mg tablet 40 mg (2 x 20 mg) PO DAILY 5 days 12/31/23 #10 tabs Allergies Allergy/AdvReac Type Severity Reaction Status Date / Time No Known Allergies Allergy Verified 12/31/23 08:27 Review of Systems Review of Systems: Yes all other systems are reviewed and are negative Constitutional: Constitutional: Reports as per [facility] Past Medical History Attestation statement: The following information was validated with the patient. Source: old records reviewed Surgical History H/O knee surgery Family History Family History Father Colon cancer Hypertension Mother Endometriosis Social History Social History Household Members: Children Housing: House Alcohol intake: current Alcohol intake frequency: holidays/special occasions only Alcohol type: wine Patient Tobacco Use Status: Never used Tobacco Smoked in Last 30 Days: No Use of substances other than those prescribed or required for medical reasons: Yes Substance Use Type: Marijuana Substance Use Frequency: Occasionally Advance Directives: No Advance Directives Information Provided: No Do you have a plan to hurt others: No Plan Current occupational status: employed Current occupation: Sales Physical Exam ED Vital Signs: Vital Signs - 24 hr 12/31/23 08:22 12/31/23 08:59 12/31/23 12:53 Temperature 97.3 F 98.3 F 98.3 F Pulse Rate 80 83 83 Respiratory Rate 16 18 18 Blood Pressure 118/66 120/69 120/69 Pulse Oximetry 98 98 98 Oxygen Delivery Method Room Air Room Air Room Air BMI result Body Mass Index 45.8 Const General: cooperative, healthy appearing and no acute distress Orientation/consciousness: patient oriented x3 Limitations: no limitations HENMT Head: Yes normal to inspection and Yes atraumatic Ears: hearing grossly normal bilaterally General nose exam: Normal external nose present Face and sinus: Yes normal facial exam Eyes General: appearance normal, both eyes and all related structures EOM: EOMs intact bilaterally Neck Neck: Yes normal visual inspection and Yes no meningeal signs Resp Effort & Inspection: normal respiratory effort and no respiratory distress Cardio Rate: regular rate Heart sounds: S1 normal heart sound present and S2 normal heart sound present Peripheral pulses: Peripheral pulses 2+ throughout GI Inspection: Yes normal to inspection Palpation (GI): Soft to palpation, nontender, no guarding and not rigid Skin Rashes: no rashes Wounds: no wounds Neuro General: patient oriented x3, tone normal and no meningeal signs Cranial nerves: Yes CN's II-XII intact bilaterally Gait exam (Neuro): Normal gait present Extrem Other: Left wrist with mild swelling and tenderness. Neurovascularly intact Left foot/ankle with swelling > lateral aspect. Tender to palpation. Neurovascularly intact. Right 3rd and 4th digits with PIP swelling and limited ROM secondary to pain. No erythema, warmth, crepitus, discoloration or deformity. Course Course Course Narrative: -1207--mild leukocytosis 12.7. ESR elevated to 34. CRP elevated to 10.3 -uric acid level WNL -COVID/flu/RSV negative XR foot LT min 3V/XR ankle LT min 3V IMPRESSION: Small calcaneal heel enthesophyte. No visible acute fracture or dislocation seen. > discussed with patient results including needed follow up with rheumatology and her PCP. Patient requesting stronger pain medication. Discussed will give her 1 time dose of p.o. morphine in the ED however will not be discharging with prescription. Recommended Tylenol/Motrin at home. Will apply Cody wrap to ankle/foot - Results discussed with patient including worrisome signs and symptoms and strict return precautions, and when to return to the emergency department. They verbalized understanding and feel safe for discharge at this time. Medications Administered Discontinued Medications Generic Name Dose Route Start Last Admin Trade Name Elaine PRN Reason Stop Dose Admin Acetaminophen 650 mg 12/31/23 09:58 12/31/23 10:20 Acetaminophen 325 Mg Tablet PO 12/31/23 09:59 650 mg ONCE ONE Administration Morphine Sulfate 15 mg 12/31/23 12:13 12/31/23 12:27 Morphine Sulfate Immed Release 15 Mg Tablet PO 12/31/23 12:14 15 mg ONCE ONE Administration Prednisone 40 mg 12/31/23 12:13 12/31/23 12:27 Prednisone 20 Mg Tablet PO 12/31/23 12:14 40 mg ONCE ONE Administration Medical Decision Making Medical Decision Making [facility] Narrative: 38-year-old female with a past medical history Babesiosis & Lyme disease in April s/p treatment, presenting to the ED complaining of atraumatic left wrist pain and swelling since Monday, was evaluated at urgent care yesterday had unremarkable x-ray, now with left foot/ankle pain and swelling, and right 3rd & 4th digits swelling. On exam vital signs stable, NAD, nontoxic appearing, physical exam as noted above with diffuse joint swelling and tenderness. No erythema/warmth or ecchymosis/deformity. Concern for arthritis vs sprain vs ? gout vs recurrent Lyme disease. No evidence of septic joint/arthritis. Lower suspicion for fracture. Plan: Labs, tick-borne illness, Lyme titer, x-ray Please refer to course for remaining clinical decision making, interpretation of labs/imaging results, and discussions with consultants and/or family members. Differential Diagnosis Differential Diagnoses: The differential diagnosis associated with the presentation includes As above Admission/Observation Consideration of admission/observation: Escalation of care including admission/observation considered Lab Data [facility] Lab Attestation statement: I reviewed the patient's lab results. 12/31/23 09:47 12/31/23 09:46 Labs: Lab Results 12/31/23 12/31/23 Range/Units 09:46 09:47 WBC 12.7 H (4.8-10.8) X10*3/uL RBC 4.24 (4.20-5.50) X10*6/uL Hgb 12.6 (12.0-16.0) g/dl Hct 37.4 (37.0-47.0) % MCV 88.2 (80.0-98.0) fL MCH 29.7 (27.0-33.0) pg MCHC 33.7 (31.0-35.0) g/dl RDW 12.6 (11.0-16.0) % Plt Count 186 (160-400) X10*3/uL MPV 11.7 (9.4-12.3) fL Immature Gran % (Auto) 0.5 H (0.0-0.4) % Neut % (Auto) 85.4 H (45-73) % Lymph % (Auto) 10.0 L (20-40) % Jones % (Auto) 3.7 (2-11) % Eos % (Auto) 0.1 (0-4) % Baso % (Auto) 0.3 (0-2) % Lymph # (Auto) 1.3 (1.2-4.9) X10*3/uL Jones # (Auto) 0.5 (0.1-1.2) X10*3/uL Eos # (Auto) 0.0 (0.0-0.4) X10*3/uL Baso # (Auto) 0.0 (0.0-0.2) X10*3/uL Abs Immat Gran (auto) 0.06 H (0.00-0.03) X10*3/uL Absolute Neuts (auto) 10.9 H (2.0-8.3) x10*3/uL Absolute Nucleated RBC 0.000 (0.0-0.012) X10*3/uL Nucleated RBC % (auto) 0.0 (0.0-0.2) /100WBC ESR 34 H (0-20) MM/HR Sodium 140 (135-145) mmol/L Potassium 3.7 (3.3-5.1) mmol/L Chloride 107 (96-108) mmol/L Carbon Dioxide 23 (22-29) mmol/L Anion Gap 14 (12-20) BUN 16 (9-16) mg/dL Creatinine 0.75 (0.5-1.4) mg/dL Estim Creat Clear Calc 137.6 Estimated GFR > 60 Random Glucose 87 (60-115) mg/dL Uric Acid 4.4 (2.4-5.7) mg/dL Calcium 8.9 (8.4-10.2) mg/dL Magnesium 1.9 (1.6-2.6) mg/dL Total Bilirubin 0.5 (0.0-1.0) mg/dL Direct Bilirubin 0.2 (0.0-0.5) mg/dL AST 17 (5-31) U/L ALT 15 (0-31) U/L Alkaline Phosphatase 54 (39-117) U/L Total Creatine Kinase 39 (26-140) U/L C-Reactive Protein 10.38 H (< or = 0.50) mg/dL Total Protein 7.0 (6.5-8.0) g/dL Albumin 3.9 (3.5-5.0) g/dL Influenza Type A (PCR) NEGATIVE (Negative) Influenza Type B (PCR) NEGATIVE (Negative) RSV RNA Qual (PCR) NEGATIVE (Negative) SARS-CoV-2 RNA (RT-PCR) NEGATIVE (Negative) Independent Interpretation I performed an independent interpretation of an: Plain X-Ray Radiology Impression Discussion of test interpretation with radiology: I have reviewed the radiologist's reading. External Record Review External record reviewed: Inpatient record, Office record, Outpatient record, Prior outpatient labs, Prior outpatient radiology, Primary care record and Outside ED record Tests considered The following testing was considered but not selected: As above Prescription Management I considered prescription management with: Pain Medication Social Determinants Patient?s care significantly limited by Social Determinants of Health including: Other Social Determinant of Health Discharge Plan Discharge Clinical Impression: Arthropathy Patient Disposition: Home, Self-Care Instructions: Swollen Joint (ED) Additional Instructions: Your blood work shows an elevation in her inflammatory markers Prednisone as a steroid please take as prescribed until completion Wear Cody wrap for comfort and stability Ice swollen areas Follow-up with your doctor as well as Rheumatology, please call to make an appointment If symptoms persist or worsen, pain is unbearable, you have red, warm joints or fever return to the ED Prescriptions: New prednisone 20 mg tablet 40 mg PO DAILY 5 Days Qty: 10 0RF No Action cyclobenzaprine 10 mg tablet 10 mg PO Q8H Qty: 20 0RF ibuprofen 600 mg tablet 600 mg PO Q6H PRN (Reason: fever or pain) Qty: 30 0RF azithromycin 250 mg tablet 250 mg PO DIRECTED atovaquone 750 mg/5 mL suspension 750 mg PO BID Rx Instructions: must administer with food, preferably a high-fat meal Referrals: [facility] [place] [facility] [Provider Group] Physician,Unknown J [Primary Care Provider] - Interventions: ED Discharge Assessment Last Done: 12/31/23 12:53 Discharge Date/Time: 12/31/23 12:56 Print Language: Azerbaijani
[2023-12-31 10:32] LABS: Erythrocyte Sedimentation Rate 34 MM/HR (0-20)
[2023-12-31 10:43] LABS: Influenza A PCR NEGATIVE (Negative); Influenza B PCR NEGATIVE (Negative); Resp Syncy Virus RNA Qual PCR NEGATIVE (Negative); SARS COV2 PCR INHOUSE NEGATIVE (Negative)
[2023-12-31 11:47] LABS: Uric Acid 4.4 mg/dL (2.4-5.7)
--- NOTE | 2023-12-31 12:03 | PC.NURSE ---
Pt. is napping comfortably at this time. His bed and fanta areas are clean and dry. No ligature risks in pt.'s room. Two security officers remain at bedside.
[2023-12-31] MEDS: predniSONE 20 MG TABLET 40 MG PO (12:27)
[2023-12-31] MEDS: Morphine Sulfate Immed Release 15 MG TABLET PO (12:27)
[2023-12-31 12:53] VITALS: BP 120/69; PULSE 83; RESP 18; TEMP 36.8; O2SAT 98
[2024-01-01 09:24] LABS: Lyme Abs Screen <0.90 index
[2024-01-01 21:39] LABS: A. Phagocytphilium DNA,RT-PCR NOT DETECTED (NOT DETECTED); Babesia Microti DNA, RT-PCR NOT DETECTED (NOT DETECTED); Borrelia Miyamotoi,DNA RT-PCR NOT DETECTED (NOT DETECTED); E.Chaffeensis DNA RT-PCR NOT DETECTED (NOT DETECTED); Lyme(Borrelia ssp)DNA RT-PCR NOT DETECTED (NOT DETECTED)
[2024-01-05 11:48] LABS: Anti Nuclear Antibody Screen POSITIVE (NEGATIVE)
== END 2023-12-31 12:56 | disposition home or self-care (01) ==
PROVIDERS: Physician Assistant; Emergency Provider Emergency Medicine
DX: M12.842 Other specific arthropathies, not elsewhere classified, left hand (principal); M25.532 Pain in left wrist; M79.641 Pain in right hand; M79.642 Pain in left hand; M25.572 Pain in left ankle and joints of left foot; M79.10 Myalgia, unspecified site; M25.571 Pain in right ankle and joints of right foot; Z03.818 Encounter for observation for suspected exposure to other biological agents ruled out; Z79.899 Other long term (current) drug therapy
CPT/HCPCS: 0241U; 36415; 73610; 73630; 80048; 80076; 82550; 83735; 84550; 85025; 85652; 86038; 86039; 86140; 86617; 86618; 87468; 87469; 87478; 87484; 87798; 99284

== ENCOUNTER 2024-01-02 01:18 | Emergency (ER) | payer BC, SELFPAY ==
[2024-01-02 01:33] VITALS: BP 115/71; PULSE 91; RESP 18; TEMP 36.8; O2SAT 98; BMI 45.8
--- NOTE | 2024-01-02 01:54 | PC.NURSE ---
Pt assessed in triage. After completing triage assessment, pt stated that she wished to go home and follow up with her existing appointment this afternoon, after seeing the volume of pts currently in the WR. Advised pt to stay for further assessment, pt refused.
== END 2024-01-02 01:58 | disposition left against medical advice (07) ==
LOC: HO.ED 01:57
PROVIDERS: Emergency Provider Emergency Medicine
DX: M25.572 Pain in left ankle and joints of left foot (principal); Z53.21 Procedure and treatment not carried out due to patient leaving prior to being seen by health care provider
CPT/HCPCS: 99281

== ENCOUNTER 2024-01-02 12:49 | Outpatient (AMB) | payer BC, SELFPAY ==
[2024-01-02 12:56] VITALS: BP 120/68; PULSE 115; O2SAT 97; BMI 45.8
--- NOTE | 2024-01-02 12:56 | MHC.OFFVIS ---
Vital Signs 01/02/24 12:56 Height 5 ft 5 in Weight 275 lb BMI 45.8 BP 120/68 Blood Pressure Location Lt brachial Position Sitting Pulse 115 H Pulse Source Pulse Oximeter Pulse Oximetry (%) 97 Oxygen Delivery Method Room Air Intake Visit Reasons: ABNORMAL LAB RES/CM Intake Note: Patient is here with joint seizing, rosita. right fingers left wrist, and left ankle, with unbearable pain, has been in ED. INflammation markers were high. Allergies No Known Allergies Allergy (Verified 01/02/24 12:58) Medication List - Last Reconciled 01/02/24 by Aden Lundy MD acetaminophen (Tylenol Extra Strength) 1,000 mg PO Q6H PRN atovaquone 750 mg PO BID azithromycin 250 mg PO DIRECTED cyclobenzaprine 10 mg PO Q8H ibuprofen 600 mg PO Q6H PRN norethindrone-ethin estradiol 1-35 mg-mcg (21) (Nortrel) 1 tab PO DAILY valacyclovir 500 mg PO DAILY HPI Comments Details: This is a 38-year-old female who returns for an urgent visit. I had seen her a few months ago. At that time she was diagnosed with Lyme disease and babesiosis by [facility] and started on antibiotics. She completed the antibiotics in September and generalized body pains significantly improved. She has been going to the gym for the last 8 weeks. She has been feeling well. Three days ago she woke up with abrupt onset of left wrist pain and swelling, soon after she started to have significant left ankle pain swelling. She went to the emergency room. Her inflammatory markers were elevated. She was prescribed 1 dose of morphine in the ER and discharged on prednisone 40 mg daily. She took prednisone for 2 days. She has been wearing a left wrist splint. Today she came in a wheelchair and using crutches to move around. She denies history of psoriasis, uveitis, inflammatory bowel disease. She states that she has history of hidradenitis suppurativa. She has had it for years. She states that she was prescribed a Z-Pasquale for 10 days by her integrative medicine specialist a few weeks ago. Then she developed a yeast infection. It was treated with antifungal treatments. About a week before onset of symptoms she was having sore throat. Initial history: This is a 38-year-old female who presents for evaluation of diffuse pain and body aches. She states that she has had diffuse body aches for years but it has become worse since April of 2022. Was having significant left shoulder pain and pain in her upper left back area, neck area. She was evaluated by physiatry and received a couple of steroid injections without much improvement as well as trigger point injection without much improvement. Patient was recently evaluated by [facility] and was found to have babesiosis. She is currently on treatment. She started atovaquone about 5 weeks ago and azithromycin was started recently. States that the treatment last 6-8 months. She has not noticed any significant improvement yet. Patient sleeps about 8 hours nightly but does not wake up refreshed. She follows up with a therapist about once a month. She is unaware of any family history of an autoimmune rheumatic disease. Denies any history suggestive of uveitis. Denies any history suggestive of DVT/PE or recurrent miscarriages. 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 Reproductive History Menstrual Total pregnancies: 3 Ab spontaneous: 1 Review of Systems [facility] Reports arthralgias, Reports joint swelling and Reports stiffness Physical Exam Vital Signs: Last Vital Signs Pulse 115 H 01/02/24 12:56 BP 120/68 01/02/24 12:56 Pulse Ox 97 01/02/24 12:56 Oxygen Delivery Method Room Air 01/02/24 12:56 BMI result Body Mass Index 45.8 Const General: cooperative, healthy appearing and comfortable Nutritional Appearance: obese morbidly obese Orientation/consciousness: patient oriented x3 Limitations: crutches and wheelchair HEENT Head: Yes normocephalic and Yes atraumatic Resp Effort & Inspection: normal respiratory effort and able to speak in complete sentences Auscultation: clear to auscultation bilaterally Cardio Rate: regular rate Rhythm: regular rhythm Skin General skin exam: no rashes or lesions noted Neuro General: patient oriented x3 Extrem Other: Mild swelling of left hand and wrists Positive Kathy's test on the left No finger swelling or tenderness left hand No right wrist swelling or tenderness Mild finger swelling right hand Right 2nd through 5th PIP and MCP tenderness Normal nailfold capillaroscopy No elbow swelling or tenderness bilaterally Normal range of motion of shoulders No knee swelling or tenderness or warmth or pain with full flexion and extension Significant left ankle swelling warmth and tenderness Left dorsal foot swelling Multiple tender MTPs left foot Assessment & Plan Assessment & Plan (1) Inflammatory arthritis: Code(s): M19.90 - Unspecified osteoarthritis, unspecified site Category: Medical Plan: This is a 38-year-old female with history of Lyme disease, babesiosis who presents for evaluation of abrupt onset of left wrist swelling as well as left ankle swelling and tenderness, to the point that she requires crutches. Clinical picture consistent with new onset inflammatory arthritis. I will order comprehensive serology to screen for underlying autoimmune rheumatic disease. Her clinical picture today is more consistent with reactive arthritis. Will test for gonorrhea and chlamydia I gave the patient an injection of 40 mg of Kenalog in clinic today. Start Medrol taper Advised patient not to combine Medrol with ibuprofen Can use Tylenol if needed Advised patient to call the office if she is not better in 1 week and we can schedule her for ultrasound-guided injection Follow-up in 3 weeks Plan I spent 46 minutes reviewing patient's chart, evaluating patient, ordering diagnostic workup, counseling patient and documenting in the chart Orders: Orders Complement C4 Today M32.9 - Systemic lupus erythematosus, unspecified Erythrocyte Sedimentation Rate Today M32.9 - Systemic lupus erythematosus, unspecified Protein Creatinine Ratio, Ur Today M32.9 - Systemic lupus erythematosus, unspecified Complete Blood Count Auto Diff Today M32.9 - Systemic lupus erythematosus, unspecified Hepatitis A,B,C Profile Today Z11.59 - Encounter for screening for other viral diseases Immunofixation Pnl, Serum Today M32.9 - Systemic lupus erythematosus, unspecified T Spot TB Today Z11.7 - Encounter for testing for latent tuberculosis infection ANCA Vasculitides Today M32.9 - Systemic lupus erythematosus, unspecified HLA B27 Today M45.9 - Ankylosing spondylitis of unspecified sites in spine CT NG by PCR Today M02.30 - Kira's disease, unspecified site Syphilis Screen Today M02.30 - Kira's disease, unspecified site Anti Extractable Nuclear Ag Today M32.9 - Systemic lupus erythematosus, unspecified Anti DNA DS Antibody Today M32.9 - Systemic lupus erythematosus, unspecified Complement C3 Today M32.9 - Systemic lupus erythematosus, unspecified C Reactive Protein Today M32.9 - Systemic lupus erythematosus, unspecified DNA Double Stranded-Crithidia Today M32.9 - Systemic lupus erythematosus, unspecified Sjogren's Antibodies Today M32.9 - Systemic lupus erythematosus, unspecified UA w Microscopic Today M32.9 - Systemic lupus erythematosus, unspecified Comprehensive Met. Panel Today M32.9 - Systemic lupus erythematosus, unspecified Protein Electrophoresis, Serum Today M32.9 - Systemic lupus erythematosus, unspecified Creatine Kinase Total Today M32.9 - Systemic lupus erythematosus, unspecified Angiotensin Converting Enzyme Today D86.9 - Sarcoidosis, unspecified Rheumatoid Factor Today M32.9 - Systemic lupus erythematosus, unspecified Cyclic Citrullinated Peptide Today M32.9 - Systemic lupus erythematosus, unspecified [facility] IBD SGI Today K52.9 - Noninfective gastroenteritis and colitis, unspecified HIV Ab/Ag Today M02.30 - Kira's disease, unspecified site Streptolysin O Antibody Today M02.30 - Kira's disease, unspecified site Uric Acid Today M10.9 - Gout, unspecified Medications: New methylprednisolone (Medrol) Take 5 tabs daily for 5 days then 4 tabs daily for 1 week then 3 tabs daily for 1 week then remain on 2 tabs daily 88 tabs 0RF Discontinued prednisone Discontinued Reason: Doctor's Order 40 mg (2 x 20 mg) PO DAILY 5 days 10 tabs 0RF Coding Level of Care Code Est Pt Level 5 (83605) Diagnoses Inflammatory arthritis M19.90
== END 2024-01-02 13:39 | disposition home or self-care (01) ==
PROVIDERS: Visit Provider Student in an Organized Health Care Education/Training Program
DX: M19.90 Unspecified osteoarthritis, unspecified site (principal)
CPT/HCPCS: 99215

== ENCOUNTER 2024-01-02 13:49 | Outpatient (REF) | payer BC, SELFPAY ==
[2024-01-02 15:09] LABS: Basophils Percent Auto 0.1 % (0-2); Eosinophils Percent Auto 0.1 % (0-4); Hemoglobin 12.1 g/dl (12.0-16.0); Imm Gran Abs Auto 0.07 X10*3/uL (0.00-0.03); Imm Gran Pct Auto 0.4 % (0.0-0.4); Lymphocytes Absolute Auto 0.7 X10*3/uL (1.2-4.9); MANUAL DIFF FLAG SCAN; Mean Corpuscular HGB Conc 33.6 g/dl (31.0-35.0); Mean Corpuscular Volume 89.1 fL (80.0-98.0); Mean Platelet Volume 12.2 fL (9.4-12.3); Monocytes Absolute Auto 0.5 X10*3/uL (0.1-1.2); Monocytes Percent Auto 3.1 % (2-11); Neutrophils Absolute Auto 15.2 x10*3/uL (2.0-8.3); Neutrophils Percent Auto 92.3 % (45-73); Platelet Count 180 X10*3/uL (160-400); Red Blood Count 4.04 X10*6/uL (4.20-5.50); Red Cell Distribution Width 12.6 % (11.0-16.0); SCAN SMEAR FLAG 1; White Blood Count 16.5 X10*3/uL (4.8-10.8)
[2024-01-02 15:34] LABS: Alanine Aminotransferase 18 U/L (0-31); Albumin Level 4.1 g/dL (3.5-5.0); Alkaline Phosphatase 65 U/L (39-117); Anion Gap 15 (12-20); Aspartate Amino Transferase 15 U/L (5-31); Bilirubin Total 0.3 mg/dL (0.0-1.0); Blood Urea Nitrogen 16 mg/dL (9-16); C Reactive Protein 17.36 mg/dL (< or = 0.50); Calcium 9.9 mg/dL (8.4-10.2); Carbon Dioxide 22 mmol/L (22-29); Chloride 106 mmol/L (96-108); Estimated Glomerular Filt Rate > 60; Glucose Random 110 mg/dL (60-115); Potassium 3.5 mmol/L (3.3-5.1); Sodium 139 mmol/L (135-145); Total Protein 7.7 g/dL (6.5-8.0); Uric Acid 3.1 mg/dL (2.4-5.7)
[2024-01-02 15:34] LABS: Creatinine Urine 271.71 mg/dL; Total Protein Urine Random 81 mg/dL (<12)
[2024-01-02 15:35] LABS: SLIDE REVIEW VERIFIED
[2024-01-02 15:38] LABS: Rheumatoid Factor 14.2 IU/mL (<15.0)
[2024-01-02 15:55] LABS: Erythrocyte Sedimentation Rate 80 MM/HR (0-20)
[2024-01-02 16:10] LABS: Appearance Urine Clear; Color Urine Dark Yellow; Glucose Urine UA Negative (Negative); Leukocyte Esterase Urine Trace (Negative); Nitrite Urine Negative (Negative); Specific Gravity - Urine >= 1.030 (1.005-1.025); UMIC TRIGGER UA YES; Urine Blood Moderate (2+) (Negative); Urine Ketones Trace mg/dL (Negative); Urine Protein 100 (2+) mg/dL (Neg-Trace)
[2024-01-02 16:43] LABS: Bacteria Urine 3+ (None Seen); Hyaline Casts Urine 0-2 /LPF (0-2); RBC Urine >20 /HPF (0-2); Squamous Epithelial Cell Urine 0-2 /HPF (0-2); WBC Urine 0-5 /HPF (0-5)
[2024-01-03 08:12] LABS: HBS Num1 471.59 mIU/mL (0-7.99); HBc Num1 0.13 S/CO (0.00-0.79); HIV AB/AG Nonreactive (Nonreactive); HIV Num 1 0.07 S/CO (0.00-0.99); Hepatitis A Antibody IgM 0.21 Index (0-0.79); Hepatitis B Core Antibody Nonreactive (Nonreactive); Hepatitis B Surface Antigen Negative (Negative); ~HepC Num1 0.09 S/CO (0.00-0.79); ~Hepatitis A Antibody IgM Nonreactive (Nonreactive); ~Hepatitis B Surface Antibody REACTIVE (Nonreactive); ~Hepatitis C Antibody Nonreactive (Nonreactive)
[2024-01-03 08:23] LABS: Syphilis Screen Nonreactive (Nonreactive)
[2024-01-03 10:49] LABS: Complement C3 125 mg/dL (83-193)
[2024-01-04 01:13] LABS: Streptolysin O Antibody <20 IU/mL (<200)
[2024-01-04 15:44] LABS: IgA 129 mg/dL (47-310); IgG 920 mg/dL (600-1640); IgM 100 mg/dL (50-300)
[2024-01-04 17:18] LABS: Anti DNA DS Antibody 1 IU/mL; Antibody to SS-A Antigen <1.0 NEG AI (<1.0 NEG); Antibody to SS-B Antigen <1.0 NEG AI (<1.0 NEG); Myeloperoxidase Antibody <1.0 AI; Proteinase 3 PR3 Antibodies <1.0 AI; SM/Ribonucleoprotein Ab <1.0 NEG AI (<1.0 NEG); Smith Protein <1.0 NEG AI (<1.0 NEG)
[2024-01-04 20:30] LABS: Cyclic Citrullinated Peptide <16 UNITS
[2024-01-04 22:12] LABS: Prot Elec - Albumin 3.6 g/dL (3.8-4.8); Prot Elec - Alpha1 0.6 g/dL (0.2-0.3); Prot Elec - Beta 1 0.5 g/dL (0.4-0.6); Prot Elec - Beta 2 0.4 g/dL (0.2-0.5); Prot Elec - Gamma 0.8 g/dL (0.8-1.7); Prot Elec - Total Protein 6.9 g/dL (6.1-8.1)
[2024-01-05 18:37] LABS: TS Negative Control Passed; TS Panel A 1; TS Panel B 0; TS Positive Control Passed; TSpotTB Negative (Negative)
[2024-01-07 15:29] LABS: HLA B27 Negative (Negative)
[2024-01-08 06:33] LABS: Angiotensin Converting Enzyme 28.5 U/L (9-67)
[2024-01-09 05:19] LABS: DNAds, Crithidia Antibody Negative (Negative)
== END 2024-01-02 13:50 | disposition home or self-care (01) ==
LOC: HO.LAB 13:49
PROVIDERS: Visit Provider Student in an Organized Health Care Education/Training Program
DX: M32.9 Systemic lupus erythematosus, unspecified (principal); Z11.59 Encounter for screening for other viral diseases; D86.9 Sarcoidosis, unspecified; M10.9 Gout, unspecified; Z11.7 Encounter for testing for latent tuberculosis infection; M02.30 Reiter's disease, unspecified site; K52.9 Noninfective gastroenteritis and colitis, unspecified
CPT/HCPCS: 36415; 80053; 81001; 81405; 81479; 82164; 82397; 82550; 82570; 82784; 83520; 84156; 84165; 84550; 85025; 85652; 86021; 86060; 86140; 86160; 86200; 86225; 86235; 86255; 86334; 86431; 86481; 86704; 86706; 86709; 86780; 86803; 86812; 87340; 87389; 88346; 88350

== ENCOUNTER 2024-01-10 13:09 | Outpatient (REF) | payer BC, SELFPAY ==
[2024-01-10 13:53] LABS: Appearance Urine Turbid; Color Urine Dark Yellow; Glucose Urine UA Negative (Negative); Leukocyte Esterase Urine Negative (Negative); Nitrite Urine Negative (Negative); PH 5.5 (5.0-9.0); Specific Gravity - Urine >= 1.030 (1.005-1.025); UMIC TRIGGER UA YES; Urine Blood Negative (Negative); Urine Ketones Trace mg/dL (Negative); Urine Protein 30 (1+) mg/dL (Neg-Trace)
[2024-01-10 14:02] LABS: Bacteria Urine 3+ (None Seen); RBC Urine 0-2 /HPF (0-2); WBC Urine 0-5 /HPF (0-5)
[2024-01-11 06:50] LABS: CT PCR NOT DETECTED (Not Detect.); NG PCR NOT DETECTED (Not Detect.)
== END 2024-01-10 13:10 | disposition home or self-care (01) ==
LOC: HO.LAB 13:09
PROVIDERS: PCP Physician Assistant Medical; Visit Provider Student in an Organized Health Care Education/Training Program
DX: N39.0 Urinary tract infection, site not specified (principal); A74.9 Chlamydial infection, unspecified; R39.0 Extravasation of urine
CPT/HCPCS: 81001; 87086; 87491; 87591

== ENCOUNTER 2024-02-22 09:31 | Outpatient (AMB) | payer BC, SELFPAY ==
--- OUTSIDE RECORDS SUMMARY | 2024-02-22 09:32 | XMS_ITS ---
Author Organization [facility] Address [address] [place] [address] Care Team Providers Care Director Of Field Coordination Name Role Phone Claude Mendoza [phone] ALLERGIES, ADVERSE REACTIONS, ALERTS None MEDICATIONS Medication Code Code System Start Date Stop Date Route Dosage Directions Fill Instructions VALACYCLOVIR 500MG TAB RxNorm Ciprodex 442816 RxNorm 3 otic (ear) 4 PROBLEMS Problem Name Code Code System Start Date End Date Stat us Zoster [herpes zoster] 2685226 [facility] Active Unspecified acute noninfective otitis externa, left ear 3118540381558734 [facility] 09/29/2022 Active ENCOUNTERS Encounter Diagnosis Code Code System Date Stat us Unspecified acute noninfecti ve otitis externa, left ear 5649765723124657 [facility] 09/29/2022 Active IMMUNIZATIONS * None VITAL SIGNS Code Code System Vitals Name Date Value and Un its 8462-4 [facility] Blood Pressure-Diastolic 09/29/2022 77 mmHg 8480-6 [facility] Blood Pressure-Systolic 09/29/2022 1 29 mmHg 8867-4 [facility] Heart Rate 09/29/2022 58 /min 9279-1 [facility] Respiratory Rate 09/29/2022 16 /min 8310-5 [facility] Body Temperature 09/29/2022 97.3 F 61395-8 [facility] Oxygen Saturation 09/29/2022 97 % SOCIAL HISTORY * None PROCEDURES * None MEDICAL EQUIPMENT * Patient has no history of implantable devices ASSESSMENT * None TREATMENT PLAN Type Description Date MEDICATION Take 0.3-0.1 % drops, suspension 09/29/2022 APPOINTMENT If not feeling lucas r in 7 day(s), please see your primary care physician. If you do not have a primary care physician, please return to this clinic. 09/29/2022 Lab Tests None GOALS * None HEALTH CONCERNS * No Health Concerns FUNCTIONAL AND COGNITIVE STATUS * None CONSULTATION NOTES * None DISCHARGE SUMMARY NOTES * None HISTORY AND PHYSICAL NOTES * Reason for visit - Illness IMAGING NOTES * None LABORATORY REPORT NARRATIVE NOTES * None PATHOLOGY REPORT NARRATIVE NOTES * None PROGRESS NOTES * None
--- NOTE | 2024-02-22 09:40 | A.OFFVIS_ITS ---
Vital Signs 02/22/24 09:46 Height 5 ft 5 in Weight 276 lb 0.3 oz BMI 45.9 BP 132/89 Blood Pressure Location Rt brachial Position Sitting Pulse 73 Pulse Source Pulse Oximeter Pulse Oximetry (%) 99 Oxygen Delivery Method Room Air Intake Visit Reasons: follow up Intake Note: Patient presents for follow up. Allergies No Known Allergies Allergy (Verified 02/22/24 09:43) Medication List - Last Reconciled 02/22/24 by Aden Lundy MD acetaminophen (Tylenol Extra Strength) 1,000 mg PO Q6H PRN celecoxib (Celebrex) 200 mg PO BID PRN ibuprofen 600 mg PO Q6H PRN norethindrone-ethin estradiol 1-35 mg-mcg (21) (Nortrel) 1 tab PO DAILY valacyclovir 500 mg PO DAILY HPI Comments Details: Patient returns for follow-up. 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 Patient had multiple testing done but what confirmed the diagnosis was a throat gonococcal DNA swab which was positive. She completed 2 weeks of IV ceftriaxone. She is much better overall. She started walking 2-3 weeks ago. She has done home PT, she has done 6 sessions so far. States that she continues to have some pain just proximal to her left toes, she has also noticed some pain in the flexor tendons in her right palm, she has also noticed some tingling and numbness in her right hand, she was evaluated by Orthopedics and an EMG was ordered to rule out carpal tunnel syndrome She has been taking Celebrex 200 mg Twice daily since her discharge on January 18 Initial history: This is a 38-year-old female who presents for evaluation of diffuse pain and body aches. She states that she has had diffuse body aches for years but it has become worse since April of 2022. Was having significant left shoulder pain and pain in her upper left back area, neck area. She was evaluated by physiatry and received a couple of steroid injections without much improvement as well as trigger point injection without much improvement. Patient was recently evaluated by [facility] and was found to have b abesiosis. She is currently on treatment. She started atovaquone about 5 weeks ago and azithromycin was started recently. States that the treatment last 6-8 months. She has not noticed any significant improvement yet. Patient sleeps about 8 hours nightly but does not wake up refreshed. She follows up with a therapist about once a month. She is unaware of any family history of an autoimmune rheumatic disease. Denies any history suggestive of uveitis. Denies any history suggestive of DVT/PE or recurrent miscarriages. [facility] Medical History (Updated 02/22/24 @ 10:23 by Aden Lundy MD) Diffuse pain Babesiosis Hidradenitis suppurativa Surgical History H/O knee surgery Family History Father Colon cancer Hypertension Mother Endometriosis Social History Household Members: Children Housing: House Alcohol intake: current Alcohol intake frequency: holidays/special occasions only Alcohol type: wine Patient Tobacco Use Status: Never used Tobacco Substance Use Type: Marijuana Current occupational status: employed Current occupation: Sales Female Reproductive History Menstrual Total pregnancies: 3 Ab spontaneous: 1 Review of Systems Musc Reports arthralgias and Reports stiffness Physical Exam Vital Signs: Last Vital Signs Pulse 73 02/22/24 09:46 BP 132/89 02/22/24 09:46 Pulse Ox 99 02/22/24 09:46 Oxygen Delivery Method Room Air 02/22/24 09:46 BMI result Body Mass Index 45.9 Const General: cooperative, healthy appearing and comfortable Nutritional Appearance: obese morbidly obese Orientation/consciousness: patient oriented x3 Limitations: crutches and wheelchair HEENT Head: Yes normocephalic and Yes atraumatic Resp Effort & Inspection: normal respiratory effort and able to speak in complete sen tences Skin General skin exam: no rashes or lesions noted Neuro General: patient oriented x3 Extrem Other: Left and wrist with no active synovitis and negative Kathy's test Positive Tinel sign on the right hand Few mildly tender flexor tendons right palm Very subtle left ankle swelling and few tender extensor tendons of the toes Positive MTP squeeze test on the left Assessment & Plan Assessment & Plan (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 She is doing much better overall. I think she continues to have some lingering mild tendonitis involving her left foot, right hand flexor tendons, she has symptoms suggestive of right hand carpal tunnel syndrome She was evaluated by an orthopedist and EMG/NCV was ordered Check labs today Lower Celebrex to 200 mg daily and take the other tablet as needed for 1 month then take Celebrex only as needed . Refilled Continue with PT continue to use wrist splints Follow-up in 2 months Plan I spent 25 minutes reviewing patient's chart, evaluating patient, ordering diagnostic workup, counseling patient and documenting in the chart Orders: Orders Complete Blood Count Auto Diff 2 Months M19.90 - Unspecified osteoarthritis, unspecified site C Reactive Protein 2 Months M19.90 - Unspecified osteoarthritis, unspecified site Erythrocyte Sedimentation Rate 2 Months M19.90 - Unspecified osteoarthritis, unspecified site Comprehensive Met. Panel Today M19.90 - Unspecified osteoarthritis, unspecified site C Reactive Protein Today M19.90 - Unspecified osteoarthritis, unspecified site Erythrocyte Sedimentation Rate Today M19.90 - Unspecified osteoarthritis, unspecified site Comprehensive Met. Panel 2 Months M19.90 - Unspecified osteoarthritis, unspecified site Complete Blood Count Auto Diff Today M19.90 - Unspecified osteoarthritis, unspecified site Medications: New celecoxib (Celebrex) 200 mg PO BID PRN 60 caps 0RF pain Coding Level of Care Code Est Pt Level 4 (13380) Diagnoses Gonococcal arthritis A54.42
[2024-02-22 09:46] VITALS: BP 132/89; PULSE 73; O2SAT 99; BMI 45.9
== END 2024-02-22 10:18 | disposition home or self-care (01) ==
PROVIDERS: PCP Physician Assistant Medical; Visit Provider Student in an Organized Health Care Education/Training Program
DX: A54.42 Gonococcal arthritis (principal)
CPT/HCPCS: 99214

== ENCOUNTER 2024-02-22 09:31 | Outpatient (REF) | payer BC, SELFPAY ==
[2024-02-22 10:49] LABS: MANUAL DIFF FLAG NO
--- OUTSIDE RECORDS SUMMARY | 2024-02-22 10:57 | XMS_ITS ---
Author Organization [facility] Address [address] [place] [address] Care Team Providers Care Oyster Planter Name Role Phone Claude Mendoza [phone] ALLERGIES, ADVERSE REACTIONS, ALERTS None MEDICATIONS Medication Code Code System Start Date Stop Date Route Dosage Directions Fill Instructions VALACYCLOVIR 500MG TAB RxNorm Ciprodex 753389 RxNorm 3 otic (ear) 4 PROBLEMS Problem Name Code Code System Start Date End Date Stat us Zoster [herpes zoster] 3685108 [facility] Active Unspecified acute noninfective otitis externa, left ear 4489952016700592 [facility] 09/29/2022 Active ENCOUNTERS Encounter Diagnosis Code Code System Date Stat us Unspecified acute noninfecti ve otitis externa, left ear 3137298888880496 [facility] 09/29/2022 Active IMMUNIZATIONS * None VITAL SIGNS Code Code System Vitals Name Date Value and Un its 8462-4 [facility] Blood Pressure-Diastolic 09/29/2022 77 mmHg 8480-6 [facility] Blood Pressure-Systolic 09/29/2022 1 29 mmHg 8867-4 [facility] Heart Rate 09/29/2022 58 /min 9279-1 [facility] Respiratory Rate 09/29/2022 16 /min 8310-5 [facility] Body Temperature 09/29/2022 97.3 F 42791-7 [facility] Oxygen Saturation 09/29/2022 97 % [...]
--- OUTSIDE RECORDS SUMMARY | 2024-02-22 10:58 | XMS_ITS ---
Author Organization [facility] Address [address] [place] [address] Care Team Providers Care Button Pusher Name Role Phone Claude Mendoza [phone] ALLERGIES, ADVERSE REACTIONS, ALERTS None MEDICATIONS Medication Code Code System Start Date Stop Date Route Dosage Directions Fill Instructions VALACYCLOVIR 500MG TAB RxNorm Ciprodex 796626 RxNorm 3 otic (ear) 4 PROBLEMS Problem Name Code Code System Start Date End Date Stat us Zoster [herpes zoster] 6574269 [facility] Active Unspecified acute noninfective otitis externa, left ear 1997065927038295 [facility] 09/29/2022 Active ENCOUNTERS Encounter Diagnosis Code Code System Date Stat us Unspecified acute noninfecti ve otitis externa, left ear 6026640990617115 [facility] 09/29/2022 Active IMMUNIZATIONS * None VITAL SIGNS Code Code System Vitals Name Date Value and Un its 8462-4 [facility] Blood Pressure-Diastolic 09/29/2022 77 mmHg 8480-6 [facility] Blood Pressure-Systolic 09/29/2022 1 29 mmHg 8867-4 [facility] Heart Rate 09/29/2022 58 /min 9279-1 [facility] Respiratory Rate 09/29/2022 16 /min 8310-5 [facility] Body Temperature 09/29/2022 97.3 F 64658-6 [facility] Oxygen Saturation 09/29/2022 97 % SOCIAL HISTORY [...]
[2024-02-22 11:18] LABS: Basophils Absolute Auto 0.1 X10*3/uL (0.0-0.2); Basophils Percent Auto 0.5 % (0-2); Eosinophils Percent Auto 0.4 % (0-4); Hematocrit 37.3 % (37.0-47.0); Hemoglobin 12.1 g/dl (12.0-16.0); Imm Gran Abs Auto 0.04 X10*3/uL (0.00-0.03); Imm Gran Pct Auto 0.4 % (0.0-0.4); Lymphocytes Absolute Auto 2.1 X10*3/uL (1.2-4.9); Lymphocytes Percent Auto 19.4 % (20-40); Mean Corpuscular HGB Conc 32.4 g/dl (31.0-35.0); Mean Corpuscular Hemoglobin 28.8 pg (27.0-33.0); Mean Corpuscular Volume 88.8 fL (80.0-98.0); Mean Platelet Volume 11.5 fL (9.4-12.3); Monocytes Absolute Auto 0.5 X10*3/uL (0.1-1.2); Monocytes Percent Auto 4.9 % (2-11); Neutrophils Absolute Auto 7.9 x10*3/uL (2.0-8.3); Neutrophils Percent Auto 74.4 % (45-73); Platelet Count 260 X10*3/uL (160-400); Red Cell Distribution Width 12.7 % (11.0-16.0); White Blood Count 10.6 X10*3/uL (4.8-10.8)
[2024-02-22 11:47] LABS: Alanine Aminotransferase 20 U/L (0-31); Albumin Level 3.9 g/dL (3.5-5.0); Alkaline Phosphatase 56 U/L (39-117); Anion Gap 11 (12-20); Aspartate Amino Transferase 18 U/L (5-31); Bilirubin Total 0.3 mg/dL (0.0-1.0); Blood Urea Nitrogen 25 mg/dL (9-16); Calcium 9.4 mg/dL (8.4-10.2); Carbon Dioxide 24 mmol/L (22-29); Chloride 108 mmol/L (96-108); Estimated Glomerular Filt Rate > 60; Glucose Random 79 mg/dL (60-115); Potassium 3.8 mmol/L (3.3-5.1); Sodium 139 mmol/L (135-145); Total Protein 6.9 g/dL (6.5-8.0)
[2024-02-22 11:56] LABS: Erythrocyte Sedimentation Rate 25 MM/HR (0-20)
== END 2024-02-22 09:32 | disposition home or self-care (01) ==
LOC: HO.LAB 09:31
PROVIDERS: PCP Physician Assistant Medical; Visit Provider Student in an Organized Health Care Education/Training Program
DX: M19.90 Unspecified osteoarthritis, unspecified site (principal); A54.42 Gonococcal arthritis
CPT/HCPCS: 36415; 80053; 85025; 85652; 86140